=== PATIENT | female | born 1945 | race Caucasian/White ===

== ENCOUNTER 2016-09-03 13:46 | Inpatient (IN) | payer MEDICARE ==
[~2016-09-03] VITALS: Ht 165.1 cm; Wt 100.1 kg
--- NOTE | 2016-09-04 07:17 | HP ---
ADMIT: 09/03/2016 RM/LOC: 630 [facility] MR#: [id number] [address] [facility] [address] [place] [phone] MADIE LOCKETT [address] [address] [place] [address] History and Physical SEX: F AGE: 71 : 1945 DATE OF SERVICE: CHIEF COMPLAINT: Infection of right foot, gangrene and cellulitis. HISTORY OF PRESENT ILLNESS: Madie is a very nice 71-year-old female, who is being cared for by Dr. Hobson in [place]. Madie was referred by Dr. Hobson to Dr. Luong, petroleum terminal plant operator here in [place] for evaluation of a nonhealing ulceration of right great toe. This is developed to the point where it has developed gangrene and cellulitis in the foot and is requiring surgical treatment along with IV antibiotics. Dr. Luong asked that I admit her in the hospital and consult him. He has already consulted Dr. Carroll for Infectious Disease. Madie states that she was diagnosed in 1989 with diabetes mellitus. Looking back on thinks, she may have had it earlier and that since her last child born 10 years before weighed greater than 11 pounds and the last 3 children were all greater than 10 pounds. In any event, she was diagnosed in 1989 with diabetes mellitus. She is not certain what her last A1c was. She is on a fairly large amount of insulin at this time. She denies any pain in her foot and has had known diabetic neuropathy for several years. Due to the cellulitis and gangrene in her foot, she is admitted for inpatient treatment. ALLERGIES: LISTED ALLERGIES TO PENICILLIN, MACROLIDES, AND MORPHINE. CURRENT MEDICATIONS: 1. Zetia 10 mg daily. 2. Metoprolol 12.5 mg b.i.d. 3. Atorvastatin 80 mg at bedtime. 4. Metformin 1000 mg b.i.d. 5. Bactrim DS one b.i.d., started on August 29. 6. Iodosorb gel daily to toe. 7. Sertraline 150 mg daily. 8. Lisinopril 5 mg daily. 9. Lantus 50 units subcu at bedtime. 10.Humalog 75/25, 90 units in the morning and 85 units in the evening. 11.Aspirin 325 mg daily. 12.Multivitamin one daily. 13.Vitamin B12 shot monthly. 14.Magnesium 250 mg b.i.d. 15.Vitamin D 2000 international units daily. 16.Calcium 500 mg daily. 17.Tylenol p.r.n. for pain. PREVIOUS HOSPITALIZATIONS/OPERATIONS: She states she had six children, natural childbirth, last one was delivered in 1979. He weighed 11 pounds 4 ounces. Last three children were greater than 10 pounds. In 1984, she was at [facility] for removal of abscesses in her axillary areas due to hidradenitis suppurativa. In 1986, similar surgery for the groin area in [place]. In 2006, she had left breast cancer removal with lumpectomy and postop radiation. Did ADMIT: 09/03/2016 RM/LOC: 630 [facility] MR#: [id number] [address] [address] CATHRYN MADIE L [address] [place] [address] History and Physical SEX: F AGE: 71 : 1945 not have any chemotherapy. In 2006, she had a heart ablation which I presume was atrial fibrillation. SOCIAL HISTORY: She is . Her of a brain tumor at age 53. She does not use tobacco or alcohol. She currently lives in her home that she sold to her youngest son and his . FAMILY HISTORY: Father at age 72 of a brain tumor. He also had hypertension. Mother at age 74 of lung cancer. REVIEW OF SYSTEMS: GENERAL: States she has been doing well other than the foot problems. HEENT: Denies any headache, blurry vision, or double vision. PULMONARY: No cough or shortness of breath. CARDIAC: History of the "heart ablation," which I presume is atrial fibrillation. Although she is not familiar with that term. She states she has been told long ago that she has hypertension. GI: She did have a cholecystectomy several years ago. : No urgency, frequency, or dysuria. MUSCULOSKELETAL: History of rheumatoid arthritis and osteoporosis. NEUROLOGICAL: She states in 2011 she had a TIA. She has not had any recurrence since then. ENDOCRINE: Positive for the diabetes mellitus since 1989 with diabetic neuropathy and now the gangrenous cellulitis of her right great toe. Rest of review of systems negative. PHYSICAL EXAMINATION: GENERAL: A very nice 71-year-old female. She is alert, cooperative, and oriented x3. VITAL SIGNS: Stable. Temp is 98.6, BP is 138/88, respiratory rate 22, pulse is 82 and regular. HEENT: Eyes, PERRLA. EOMs intact. TMs not seen. Throat is moist, not inflamed. NECK: Supple. No lymphadenopathy. No thyromegaly. LUNGS: Clear to auscultation anteriorly. HEART: Regular rate. No murmur heard. BREASTS: Not examined. ABDOMEN: Soft. No organomegaly or tenderness. : Deferred. RECTAL: Deferred. EXTREMITIES: Calves are nontender. No swelling. She does have some swelling and erythema on the right instep and forefoot. Her right great toe was bandaged. I did not remove the bandage. DIAGNOSTIC IMPRESSION: 1. Per Dr. Luong, she has gangrene of the right great toe. 2. Cellulitis, right foot. 3. Diabetes mellitus type 2. 4. Diabetic neuropathy. ADMIT: 09/03/2016 RM/LOC: 630 [facility] MR#: [id number] [address] [address] MADIE LOCKETT [address] [place] [address] History and Physical SEX: F AGE: 71 : 1945 5. History of breast cancer in 2006. No evidence of recurrence. 6. Prior history of transient ischemic attack. 7. History of presumed atrial fibrillation. 8. Reported history of rheumatoid arthritis. 9. Osteoporosis. 10.Chronic kidney disease. Her creatinine is 1.5. 11.Anemia. Hemoglobin 7.8, it appears to be microcytic hyperchromic. 12.History of hidradenitis suppurativa. PLAN: She is admitted to the hospital. At this time, cultures of the blood will be obtained. Started on IV meropenem and IV vancomycin per Dr. Carroll. We will place her on sliding scale insulin. We will hold her Humalog insulin tomorrow. She is going to have surgery tomorrow. We will go ahead and give her Lantus insulin tonight. Diet tonight. She will get diet in the a.m. and be n.p.o. after 8:30 a.m. She is not having her surgery till 4:30 or 5:00 p.m. We will check EKG, chest x-ray tonight. She will need anemia workup with hematemesis, stools, serum iron level, and B12 folic acid levels. Zach Salas MD/ anabelle JOB #: [id number] CC: Zach Salas, Attending Physician Yessy Hobson, Family Physician
--- NOTE | 2016-09-04 09:42 | CO ---
ADMIT: 09/03/2016 RM/LOC: 630 [facility] MR#: [id number] 2620 [facility] [address] [place] [phone] MALINI DOUGHERTY [address] [address] [place] [address] Consultation SEX: F AGE: 71 : 1945 DATE OF CONSULTATION: 09/03/2016 ATTENDING PHYSICIAN: Zach Salas CONSULTING PHYSICIAN: Tenisha Carroll MD REASON FOR CONSULT: Right foot infection. Thank you, Dr. Luong, for the consult and involving me in this patient's care. HISTORY OF PRESENT ILLNESS: Ms. Dougherty is a 71-year-old woman with history of diabetes mellitus, who presented to Dr. Luong's office today with necrotic right great toe infection. She was seen by him last week in [place] where she had right foot infection, and per the patient, she was started on Bactrim. Today for followup appointment, her toe looked worse hence admitted for further management. 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 Subsequently, it got worse and now she has a necrotic toe associated with swelling and redness extending up to her anterior leg. She denies any fevers at home. PAST MEDICAL HISTORY: Hypertension, hyperlipidemia, history of breast cancer, history of supraventricular tachycardia, status post ablation, history of cholecystectomy, depression, dementia, and diabetes mellitus. ALLERGIES: PENICILLIN, WHICH CAUSES HIVES. ALSO, ALLERGIC TO MORPHINE AND ERYTHROMYCIN. CURRENT MEDICATIONS: 1. Vancomycin. 2. Ciprofloxacin. SOCIAL HISTORY: Patient lives at home with her daughter and grand kids and denies any smoking, alcohol, or recreational drug use. FAMILY HISTORY: Significant for diabetes mellitus in her paternal grandmother and cousins. REVIEW OF SYSTEMS: A 10-point review of systems negative except as mentioned in HPI. PHYSICAL EXAMINATION: VITAL SIGNS: Current temperature 98, heart rate 94, respirations 18, and blood pressure 133/55, and 96% on room air. GENERAL: No acute distress. HEENT: Head is normocephalic and atraumatic. Extraocular movements intact. LYMPH: No palpable anterior/posterior cervical or supraclavicular lymphadenopathy. CHEST: Decreased breath sounds bilaterally. No wheezes, rales, or rhonchi. ADMIT: 09/03/2016 RM/LOC: 630 [facility] MR#: [id number] [address] [address] MALINI DOUGHERTY [address] [address] [place] [address] Consultation SEX: F AGE: 71 : 1945 CARDIOVASCULAR: S1 and S2 heard. Regular rate and rhythm. ABDOMEN: Soft, obese, nontender. Active bowel sounds. MUSCULOSKELETAL: The right great toe is necrotic and gangrenous. There is mild fluid present under the skin. Foul-smelling odor noted. There is erythema and swelling on the right great toe extending up to anterior foot and anterior leg. PSYCH: Normal affect. Memory intact. SKIN: No rash noted on exposed skin. DATA REVIEW: Labs are pending at this time. ASSESSMENT/PLAN: 1. 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 She has wet gangrene, and MRI has been ordered, which is pending at this time. I will stop the ciprofloxacin and switch to meropenem to cover for anaerobes. Continue vancomycin for now. We will also check a CK level. She may need amputation of the right great toe given the extent of the infection. We will defer it to Dr. Luong. 2. Diabetes mellitus. 3. History of breast cancer. 4. Hypertension. Thank you for the consult, and I will continue to follow the patient. Tenisha Carroll MD/ anabelle JOB #: [id number] CC: Zach Salas, Attending Physician Yessy Hobson, Family Physician
--- NOTE | 2016-09-06 14:03 | OR ---
ADMIT: 09/03/2016 RM/LOC: 630 [facility] MR#: [id number] [address] [address] MALINI LOCKETT [address] [address] [place] [address] Operative/Delivery Room Report SEX: F AGE: 71 : 1945 SURGERY DATE: 09/04/2016 SURGEON: Donny Luong DPM DEVICE TEST ENGINEER: None. PREOPERATIVE DIAGNOSIS: Gangrene of right foot 1st digit. POSTOPERATIVE DIAGNOSIS: Gangrene of right foot 1st digit. PROCEDURE: Amputation of the right foot 1st digit. ANESTHESIA: MAC with local per the Anesthesia team. COMPLICATIONS: None. SPECIMENS: 1. Culture of the 1st digit. 2. Bone with pathology and micro. 3. Digit for gross pathology. ESTIMATED BLOOD LOSS: Less than 5 mL. FLUID REPLACEMENTS: Per Anesthesia. HEMOSTASIS: Pneumatic ankle tourniquet at 350 mmHg. INJECTIONS: 10 mL of 0.5% Marcaine plain. MATERIALS: 4-0 Prolene and Iodoform strip packing. PREOPERATIVE STATEMENT: This patient was seen in the hospital for gangrene, cellulitis, and osteomyelitis of the right foot 1st digit. The patient had osteomyelitis confirmed on MRI. The patient has failed IV antibiotics and it was determined at this time that surgical intervention was necessary to reduce the risk of overwhelming infection and improve the potential for healing. The patient was seen in the preoperative area. The consent was reviewed with the patient including the risks and benefits of the procedure. The patient's questions were answered in detail, and the consent was noted to be signed and placed on the chart. The H and P was up-to-date. The labs, EKGs, and x-rays were reviewed, and there were no contraindications to surgery at this time OPERATIVE REPORT: This patient was brought back to the operating room and placed on operating table in the supine position. Also, a well-padded ankle tourniquet was placed about the patient's right ankle. The time-out was performed and site marking was noted. When all in agreement, the foot was prepped and draped in the normal aseptic technique and the procedure was underway. ADMIT: 09/03/2016 RM/LOC: 630 [facility] MR#: [id number] 2620 [facility] [address] [place] [address] MALINI LOCKETT [address] [address] [place] [address] Operative/Delivery Room Report SEX: F AGE: 71 : 1945 Using a #15 blade, an ellipse was created near the mid shaft of the proximal phalanx of the right 1st digit. Blunt and sharp dissection was carried out down to the level of the metatarsals, phalangeal joint. The digit was then disarticulated. After disarticulation, a large amount of necrotic tissue was noted near the sesamoid apparatus. The sesamoid apparatus was then excised in total and passed on the surgical field for pathology and micro. A swab culture was then obtained of the necrotic tissue. The necrotic issue was then removed and the site was irrigated with 3 L of sterile saline using the Pulsavac. After irrigation, any remaining nonviable tissue was removed and the wound flap was then loosely reapproximated and reshaped using #15 blade and 4-0 Prolene. After reapproximation of the wound edges, the wound bed was packed using iodoform strip gauze. The dressing was reapplied using Adaptic gauze, fluffs, Kerlix, and Damon wrap. The patient was transferred back to the inpatient status with vital signs stable and neurovascularly intact. Hyperemia was noted to the digits on release of the tourniquet. The patient is to continue to receive IV antibiotics and to be nonweightbearing on the right foot. We will continue to follow her as an inpatient. Donny Luong DPM/ anabelle JOB #: [id number] CC: Zach Salas, Attending Physician Yessy Hobson, Family Physician
[2016-09-09] MEDS ORDERED: ZETIA10 MG PO (10:54)
[2016-09-09] MEDS ORDERED: GLUCOPHAGE1000 MG PO (10:55)
[2016-09-09] MEDS ORDERED: ATORVASTATIN CA80 MG PO (10:55)
[2016-09-09] MEDS ORDERED: LOPRESSOR DPS12.5 MG PO (10:55)
[2016-09-09] MEDS ORDERED: PROCTOZONE-HC 230 GM PR (10:56)
[2016-09-09] MEDS ORDERED: ZOLOFT50 MG PO (10:56)
[2016-09-09] MEDS ORDERED: ZESTRIL DPS5 MG PO (10:56)
[2016-09-09] MEDS ORDERED: INVANZ1 GM IV (10:56)
[2016-09-09] MEDS ORDERED: LANTUS100 UNITS/ SQ (10:57)
[2016-09-09] MEDS ORDERED: ASA325 MG PO (10:57)
[2016-09-09] MEDS ORDERED: HUMALOG MI100 UNITS/ SQ ×2 (10:57)
[2016-09-09] MEDS ORDERED: THERA1 EACH PO (10:57)
[2016-09-09] MEDS ORDERED: CYANOCOBAL1000 MCG/1 IM (10:58)
[2016-09-09] MEDS ORDERED: TYLENOL EXTRA500 M1 PO (10:59)
[2016-09-09] MEDS ORDERED: VITAMIN D-32000 UNI1 PO (10:59)
[2016-09-09] MEDS ORDERED: MAGNESIUM250 M1 PO (10:59)
[2016-09-09] MEDS ORDERED: CALCIUM500 MG PO (10:59)
[2016-09-09] MEDS ORDERED: FEOSOL-DPS325 MG PO (11:00)
[2016-09-09] MEDS ORDERED: NORCO 5-325 TA1 EACH PO (11:00)
[2016-09-09] MEDS ORDERED: NORMAL SALINE FL5 ML PO (11:00)
[2016-09-09] MEDS ORDERED: MAALOX DPS30 ML PO (11:00)
[2016-09-09] MEDS ORDERED: SURFAK DPS240 MG PO (11:01)
--- NOTE | 2016-09-13 07:39 | DS ---
ADMIT: 09/03/2016 RM/LOC: 630 [facility] MR#: [id number] [address] [address] MALINI LOCKETT [address] [address] [place] [address] General Discharge Summary SEX: F AGE: 71 : 1945 ADMISSION DATE: 09/03/2016 DISCHARGE DATE: 09/07/2016 ADMITTING DIAGNOSES: Gangrene and cellulitis, right great toe. DISMISSAL DIAGNOSIS: Gangrene right great toe, status post amputation of toe. COMPLICATING DIAGNOSES: 1. Diabetes mellitus type 2. 2. Anemia of chronic disease. 3. History of breast cancer. 4. Prior history of transient ischemic attack. 5. History of atrial fibrillation. 6. History rheumatoid arthritis. 7. Osteoporosis. 8. Chronic kidney disease. CHIEF COMPLAINT AND HISTORY OF PRESENT ILLNESS: A 71-year-old female, who is under care of Dr. Hobson in [place], [place]. She had some problems with infection in her right great toe and developed some gangrene. She was referred to Dr. Luong, Cyber Analyst. Dr. Luong evaluated her and felt she needed to be admitted for treatment of the infected toe, and gangrene toe MRI to delineate the extent of the osteomyelitis and probable amputation of the toe. Dr. Carroll was consulted for Infectious Disease. LABORATORY REPORTS: See lab summary sheets for details. White count on admission was 13.1 prior to dismissal was 12.8; hemoglobin on admission was 7.8, on dismissal was 7.4; platelets were 367,000 on admission. Stool for Hemoccult test was positive, and one stool negative on two other stools. Electrolytes on 09/04; sodium 137, potassium 4.6, chloride 105, CO2 of 23, BUN 23, creatinine 1.0, glucose 115; creatinine on admission was 1.5, glucose was 158. Serial blood sugars monitored during the hospital stay were generally in the 100 to 200 range. Liver enzymes were normal. Serum iron level was low at 1700. Binding capacity was normal at 272. Hemoglobin A1c was 7.7. TSH was normal at 0.98. C-reactive protein was markedly elevated at 19.5. B12 level was normal at 348. Folic acid was greater than 20. Free T4 was normal 1.17. Blood culture showed no growth. Wound culture grew out multiple organisms including few swarming proteus species, mixed anaerobes, and moderate gram- positive organisms. No VRE or MRSA or Pseudomonas were identified. Proteus species, they did do sensitivities and it was resistant to sulfa but sensitive to all other antibiotics tested. MRI of the foot showed osteomyelitis involving the mid distal aspect of the proximal phalanx of the first digit and involving the distal phalanx of the first digit with bone marrow edema demonstrated no signs of any intraosseous abscess were identified. Multiple soft tissue ulcerations and edema surrounding the first digit. Chest x-ray showed nonspecific mild peribronchial thickening. There is no focal lung consolidation. Dopplers of the lower extremities did not show any evidence of any DVT that was normal bilateral ankle brachial index. EKG showed sinus tachycardia with left bundle-branch block. ADMIT: 09/03/2016 RM/LOC: 630 [facility] MR#: [id number] [address] [place] [phone] MALINI LOCKETT [place] [address] [place] [address] General Discharge Summary SEX: F AGE: 71 : 1945 PROCEDURE: On 09/04, the patient had amputation of the right foot first digit. COURSE IN HOSPITAL: She was admitted Dr. Luong and consulted, Dr. Carroll consulted, and Dr. Carroll started her on meropenem and vancomycin IV for antibiotics. After MRI showed extended osteo, she had amputation of that toe. Blood sugars were treated with sliding scale insulin and she was continued on her home insulin. She did have anemia noted and is felt to be due to anemia of chronic disease. As she did have a low serum iron level, was placed on oral iron. Vancomycin trough levels were monitored and dosages adjusted by pharmacy. Postoperatively, she did well. She was stable. She was improved enough to be dismissed to [facility] swing bed. Midline catheter was placed for IV antibiotics. Dressings were changed. MEDICATIONS: At time of dismissal were: 1. Zetia 10 mg daily. 2. Metoprolol 12.5 mg b.i.d. 3. Atorvastatin 80 mg at bedtime. 4. Metformin a 1000 mg b.i.d. 5. Sertraline 150 mg p.o. daily. 6. Lisinopril 5 mg daily. 7. Lantus 50 units at bedtime. 8. Humalog 75/25, 90 units in the morning, 85 units in the evening. 9. Aspirin 325 mg daily. 10.Multivitamin one daily. 11.B12 shot injected monthly. 12.Magnesium 250 mg b.i.d. 13.Vitamin D 2000 international units daily. 14.Calcium 500 mg daily. 15.Tylenol p.r.n. for pain. She is to follow up with her primary physician Dr. Hobson in one week. Dr. Carroll recommended continuing the IV ertapenem until 09/18. She is to have PT/OT at swing bed. Zach Salas MD/ anabelle JOB #: [id number] CC: Zach Salas MD, Attending Physician Yessy Hobson, Family Physician
--- NOTE | 2016-09-22 13:21 | CO ---
ADMIT: 09/03/2016 RM/LOC: 630 [facility] MR#: [id number] 2620 [facility] [address] [place] [address] MALINI LOCKETT [address] [address] [place] [address] Consultation SEX: F AGE: 71 : 1945 DATE OF CONSULTATION: 09/03/2016 ATTENDING PHYSICIAN: Zach Salas CONSULTING PHYSICIAN: Donny Luong DPM CHIEF COMPLAINT: Ulceration of the right first digit. HISTORY OF PRESENT ILLNESS: This is a 71-year-old female, presenting today with worsening ulceration of the right first digit. The patient was seen in [place] and was referred for labs, antibiotics, and an MRI. The patient was started on oral Bactrim without issue, but she has not gotten an MRN and missed her appointment. The patient was intermittently applying a dressing to this ulceration and had significant decline in the condition of the ulcer. The patient presented today with worsening symptoms and was brought here by her children. The patient denies any fever, chills, nausea, or vomiting. PAST MEDICAL HISTORY: Hypertension, rheumatoid arthritis, breast cancer, obesity, depression, diabetes, osteoporosis, neuropathy, and peripheral vascular disease. PAST SURGICAL HISTORY: Lap thea and cardiac ablation. SOCIAL HISTORY: The patient lives at home with family. Denies any tobacco, alcohol, or drug abuse. FAMILY HISTORY: Noncontributory. ALLERGIES: TO MORPHINE, ERYTHROMYCIN, CINNAMON, TUNA, AND PENICILLIN. MEDICATIONS: Please see the list for current medications. REVIEW OF SYSTEMS: Negative except for stated above. PHYSICAL EXAMINATION: VASCULAR: DP and PT pulses are nonpalpable bilaterally. Absent hair growth bilaterally. Capillary refill time is approximately 4 seconds to the digits bilaterally. Moderate nonpitting edema to the foot and ankle bilaterally. NEUROLOGIC: Light touch sensation is absent to the feet bilaterally. DERMATOLOGY: The patient's ulceration of the right foot first digit has expanded to approximately 1.5 cm x 1.5 cm x 0.5 cm and has exposure of the proximal phalanx at the wound base. There is necrosis of the distal aspect of the digit as well as new-onset erythema and edema to the toe. The erythema does extend to the medial arch of the right foot. There is increased warmth, significant malodor, and some purulent drainage. MUSCULAR: No pain on palpation of the right first digit. Contracture digits II through V bilaterally. No other acute musculoskeletal concerns today. ASSESSMENT: Cellulitis, osteomyelitis, gangrene, diabetes, foot ulcer, ADMIT: 09/03/2016 RM/LOC: 630 [facility] MR#: [id number] [address] [address] MALINI LOCKETT [address] [address] Consultation SEX: F AGE: 71 : 1945 peripheral vascular disease, and peripheral neuropathy. PLAN: We will recommend that the patient be admitted to the hospital today. She was sent from the clinic and was directly admitted under the care of Dr. Salas. We will start IV antibiotics and obtain the cultures taken in [place]. We will modify antibiotic choices based on the findings of these results. We will have the patient get an MRI and I suspect that amputation of the right first digit will be necessary. We will await for the MRI findings to determine the extent of her infection and involvement. The patient's questions were answered in detail. The risks, benefits, and alternatives were described. We will continue to follow her as an inpatient and this case was discussed with Dr. Salas. Donny Luong DPM/ anabelle JOB #: [id number] CC: Zach Salas, Attending Physician Yessy Hobson, Family Physician
== END 2016-09-07 15:00 | DRG 617 ==
LOC: 6PED 13:46
PROVIDERS: ADMIT Family Medicine
DX: E11.69 Type 2 diabetes mellitus with other specified complication (principal); M86.9 Osteomyelitis, unspecified; E11.52 Type 2 diabetes mellitus with diabetic peripheral angiopathy with gangrene; E11.22 Type 2 diabetes mellitus with diabetic chronic kidney disease; F03.90 Unspecified dementia, unspecified severity, without behavioral disturbance, psychotic disturbance, mood disturbance, and anxiety; E11.621 Type 2 diabetes mellitus with foot ulcer; L97.519 Non-pressure chronic ulcer of other part of right foot with unspecified severity; E11.40 Type 2 diabetes mellitus with diabetic neuropathy, unspecified; M81.0 Age-related osteoporosis without current pathological fracture; Z68.36 Body mass index [BMI] 36.0-36.9, adult; M06.9 Rheumatoid arthritis, unspecified; F32.9 Major depressive disorder, single episode, unspecified; I44.7 Left bundle-branch block, unspecified; I12.9 Hypertensive chronic kidney disease with stage 1 through stage 4 chronic kidney disease, or unspecified chronic kidney disease; N18.9 Chronic kidney disease, unspecified; E78.5 Hyperlipidemia, unspecified; E66.9 Obesity, unspecified; D63.1 Anemia in chronic kidney disease; Z85.3 Personal history of malignant neoplasm of breast; Z79.82 Long term (current) use of aspirin; Z86.73 Personal history of transient ischemic attack (TIA), and cerebral infarction without residual deficits; Z79.4 Long term (current) use of insulin